=== PATIENT | male | born 1995 | race American Indian/Alaskan Native ===

== ENCOUNTER 2017-03-01 17:41 | Emergency (ER) | payer SELFPAY ==
[2017-03-01 18:11] VITALS: BP 125/80
== END 2017-03-01 20:15 | disposition left against medical advice (07) ==
LOC: ED 17:41
DX: R51 Headache (principal); R11.0 Nausea; Z53.21 Procedure and treatment not carried out due to patient leaving prior to being seen by health care provider

== ENCOUNTER 2019-07-05 18:55 | Emergency (ER) | payer SELFPAY ==
[2019-07-05 19:01] VITALS: BP 120/54
== END 2019-07-05 21:45 | disposition left against medical advice (07) ==
LOC: ED 18:55
DX: R05 Cough (principal); Z53.21 Procedure and treatment not carried out due to patient leaving prior to being seen by health care provider

== ENCOUNTER 2020-06-21 00:05 | Emergency (ER) | payer SELFPAY ==
[2020-06-21 00:27] VITALS: BP 114/71
== END 2020-06-21 01:00 | disposition left against medical advice (07) ==
LOC: ED 00:05
DX: M25.571 Pain in right ankle and joints of right foot (principal); Z53.21 Procedure and treatment not carried out due to patient leaving prior to being seen by health care provider

== ENCOUNTER 2021-01-03 11:45 | Emergency (ER) | payer SELFPAY ==
[2021-01-03] MEDS ORDERED: SODIUM CHLORIDE 0.9% 1000 ML 1,000 ML IV ONE ×2 (12:07→12:14)
[2021-01-03] MEDS ORDERED: HYDROmorphone 1 MG/1 ML INJ IV ONE ×2 (12:07→12:26)
[2021-01-03] MEDS ORDERED: ONDANSETRON 4 MG/2 ML INJ IV ONE (12:07)
--- NOTE | 2021-01-03 12:13 | Emergency Department Report ---
HPI - General Chief Complaint: Urogenital-Male Time Seen by Provider: 01/03/21 11:53 - HPI HPI: 25-year-old male with history of asthma and opiate use disorder presents complaining of left-sided testicular pain since 5 PM yesterday. The patient states that he takes approximately 60 mg of oxycodone p.o. daily recreationally. He states that yesterday he began to have pain in his left testicle at around 5 PM. The pain got worse and this morning he woke up with left lower abdominal pain as well. His left-sided testicular pain is worsened over the last hour he has developed nausea and vomiting. Because of the severity of the pain 911 was called and he was brought in by EMS. The patient states that he is not sexually active. Other than his left testicular pain and left-sided abdominal pain with nausea and vomiting he denies any other recent symptoms or complaints including fever/chills, headache, vision change, chest pain, cough, shortness of breath, diarrhea, constipation, melena, saddle anesthesia, focal weakness, sensory changes, dysuria, urethral discharge, or any other complaints. ED Past Medical Hx - Past Medical History Previous Medical History?: Yes Hx Asthma: Yes Additional medical history: opiate use - Surgical History Additional Surgical History: blockage in kidney at 4 mo - Social History Smoking Status: Never Smoker Substance Use Type: Marijuana - Medications Home Medications: Home Medications Medication Instructions Recorded Confirmed Last Taken Type Acetaminophen [Tylenol] 650 mg PO Q6HR PRN #30 tablet 06/17/15 Unknown Rx Ciprofloxacin HCl [Ciprofloxacin 500 mg PO Q12HR #14 tab 06/17/15 Unknown Rx TAB] Ondansetron [Zofran Odt] 4 mg PO Q8HR PRN #15 tab.rapdis 01/03/21 Unknown Rx Tamsulosin [Flomax] 0.4 mg PO QDAY #10 cap 01/03/21 Unknown Rx ED Review of Systems ROS: Stated complaint: TESTICLE EDEMA Other details as noted in HPI Constitutional: denies: chills, fever Eyes: denies: eye pain, vision change ENT: denies: throat pain, congestion Respiratory: denies: cough, shortness of breath Cardiovascular: denies: chest pain, palpitations Gastrointestinal: abdominal pain, nausea, vomiting Genitourinary: testicular pain. denies: dysuria, frequency, hematuria, discharge Musculoskeletal: denies: back pain, myalgia Skin: denies: rash, lesions Neurological: denies: headache, weakness, numbness, paresthesias Physical Exam - Physical Exam Vital Signs: Last Vital Signs Temp Pulse 71 01/03/21 17:18 Resp 21 01/03/21 17:18 BP 109/60 01/03/21 17:18 Pulse Ox 97 01/03/21 17:18 Physical Exam: GENERAL: Well developed and well nourished. In moderate distress secondary to pain HEENT: Normocephalic. No obvious signs of trauma. Dry mucous membranes. EYES: Extraocular movements are intact. NECK: Supple. Trachea is midline. LUNGS: In moderate distress secondary to pain. Equal chest rise bilaterally. Clear to auscultation bilaterally. HEART/CARDIOVASCULAR: Regular rate and rhythm. No murmurs or rubs. VASCULAR: 2+ peripheral pulses. ABDOMEN: Abdomen is soft and nondistended. There is significant left lower quadrant abdominal tenderness with voluntary guarding. There is no rebound tenderness. Otherwise there is no significant tenderness. GENITOURINARY: Normal-appearing external male genitalia. No significant testicular swelling noted. Significant tenderness noted of the entire left testicle. The cremasteric reflex is intact bilaterally. There are no skin changes or significant warmth/swelling of the perineum. SKIN: Skin is warm and dry NEURO: Patient is awake, alert, and oriented. catering service manager II-XII grossly intact. No focal deficits. MUSCULOSKELETAL: No obvious deformities. No significant tenderness. BACK/SPINE: Back exam was deferred due to the patient's clinical condition. ED Medical Decision Making - Lab Data Result diagrams: 01/03/21 12:10 01/03/21 12:10 Lab Results 01/03/21 01/03/21 01/03/21 Range/Units 12:10 12:10 12:10 WBC 6.6 (4.5-11.0) K/mm3 RBC 4.25 (3.65-5.03) M/mm3 Hgb 13.2 (11.8-15.2) gm/dl Hct 38.9 (35.5-45.6) % MCV 92 (84-94) fl MCH 31 (28-32) pg MCHC 34 (32-34) % RDW 13.1 L (13.2-15.2) % Plt Count 249 (140-440) K/mm3 Lymph % (Auto) 26.5 (13.4-35.0) % Lake % (Auto) 7.0 (0.0-7.3) % Eos % (Auto) 0.9 (0.0-4.3) % Baso % (Auto) 0.4 (0.0-1.8) % Lymph # (Auto) 1.7 (1.2-5.4) K/mm3 Lake # (Auto) 0.5 (0.0-0.8) K/mm3 Eos # (Auto) 0.1 (0.0-0.4) K/mm3 Baso # (Auto) 0.0 (0.0-0.1) K/mm3 Seg Neutrophils % 65.2 (40.0-70.0) % Seg Neutrophils # 4.3 (1.8-7.7) K/mm3 PT 12.7 (12.2-14.9) Sec. INR 0.90 (0.87-1.13) APTT 28.1 (24.2-36.6) Sec. Sodium 141 (137-145) mmol/L Potassium 4.0 (3.6-5.0) mmol/L Chloride 103.8 (98-107) mmol/L Carbon Dioxide 24 (22-30) mmol/L Anion Gap 17 mmol/L BUN 7 L (9-20) mg/dL Creatinine 0.8 (0.8-1.3) mg/dL Estimated GFR > 60 ml/min BUN/Creatinine Ratio 9 % Glucose 127 H (75-100) mg/dL Calcium 9.5 (8.4-10.2) mg/dL Magnesium 2.00 (1.7-2.3) mg/dL Total Bilirubin 0.40 (0.1-1.2) mg/dL Direct Bilirubin < 0.2 (0-0.2) mg/dL Indirect Bilirubin 0.2 mg/dL AST 23 (5-40) units/L ALT 20 (7-56) units/L Alkaline Phosphatase 77 (35-129) units/L Albumin 4.7 (3.9-5) g/dL Lipase 13 (13-60) units/L Urine Color (Yellow) Urine Turbidity (Clear) Urine pH (5.0-7.0) Ur Specific Drexel (1.003-1.030) Urine Protein (Negative) mg/dL Urine Glucose (UA) (Negative) mg/dL Urine Ketones (Negative) mg/dL Urine Blood (Negative) Urine Nitrite (Negative) Urine Bilirubin (Negative) Urine Urobilinogen (<2.0) mg/dL Ur Leukocyte Esterase (Negative) Urine WBC (Auto) (0.0-6.0) /HPF Urine RBC (Auto) (0.0-6.0) /HPF Urine Mucus /HPF 01/03/21 Range/Units 13:42 WBC (4.5-11.0) K/mm3 RBC (3.65-5.03) M/mm3 Hgb (11.8-15.2) gm/dl Hct (35.5-45.6) % MCV (84-94) fl MCH (28-32) pg MCHC (32-34) % RDW (13.2-15.2) % Plt Count (140-440) K/mm3 Lymph % (Auto) (13.4-35.0) % Lake % (Auto) (0.0-7.3) % Eos % (Auto) (0.0-4.3) % Baso % (Auto) (0.0-1.8) % Lymph # (Auto) (1.2-5.4) K/mm3 Lake # (Auto) (0.0-0.8) K/mm3 Eos # (Auto) (0.0-0.4) K/mm3 Baso # (Auto) (0.0-0.1) K/mm3 Seg Neutrophils % (40.0-70.0) % Seg Neutrophils # (1.8-7.7) K/mm3 PT (12.2-14.9) Sec. INR (0.87-1.13) APTT (24.2-36.6) Sec. Sodium (137-145) mmol/L Potassium (3.6-5.0) mmol/L Chloride (98-107) mmol/L Carbon Dioxide (22-30) mmol/L Anion Gap mmol/L BUN (9-20) mg/dL Creatinine (0.8-1.3) mg/dL Estimated GFR ml/min BUN/Creatinine Ratio % Glucose (75-100) mg/dL Calcium (8.4-10.2) mg/dL Magnesium (1.7-2.3) mg/dL Total Bilirubin (0.1-1.2) mg/dL Direct Bilirubin (0-0.2) mg/dL Indirect Bilirubin mg/dL AST (5-40) units/L ALT (7-56) units/L Alkaline Phosphatase (35-129) units/L Albumin (3.9-5) g/dL Lipase (13-60) units/L Urine Color Yellow (Yellow) Urine Turbidity Clear (Clear) Urine pH 7.0 (5.0-7.0) Ur Specific Drexel 1.012 (1.003-1.030) Urine Protein <15 mg/dl (Negative) mg/dL Urine Glucose (UA) Neg (Negative) mg/dL Urine Ketones Neg (Negative) mg/dL Urine Blood Mod (Negative) Urine Nitrite Neg (Negative) Urine Bilirubin Neg (Negative) Urine Urobilinogen < 2.0 (<2.0) mg/dL Ur Leukocyte Esterase Neg (Negative) Urine WBC (Auto) 2.0 (0.0-6.0) /HPF Urine RBC (Auto) 175.0 (0.0-6.0) /HPF Urine Mucus 1+ /HPF - Radiology Data CT ABDOMEN AND PELVIS WITH CONTRAST HISTORY: Left lower quadrant pain COMPARISON: None TECHNIQUE: Routine abdominal and pelvic CT exam performed following intravenous contrast administration.. All CT scans at this location are performed using CT dose reduction for ALARA by means of automated exposure control. FINDINGS: CT ABDOMEN: Lung Bases: No significant abnormality. Liver: No significant abnormality. Biliary: No significant abnormality. Spleen: No significant abnormality. Unenlarged. Pancreas: No significant abnormality. Adrenals: No significant abnormality. Kidneys: There is mild left hydronephrosis due to a 3 mm stone in the proximal left ureter. There is also a 1.5 cm simple cyst in the mid left kidney. Lymphatics: No lymphadenopathy. Vasculature: No significant abnormality. Bowel/Peritoneum: No significant abnormality. No free air. No free fluid. Normal appendix. CT PELVIC: : No significant abnormality. Lymphatics: No lymphadenopathy. Osseous Structures: No aggressive appearing osseous lesions. Additional Findings: None IMPRESSION: 1. Mild left hydronephrosis due to 3 mm stone in the proximal left ureter. Signer Name: Eloy Barcenas MD Signed: 01/03/2021 12:43 PM Workstation Name: [id number] ULTRASOUND SCROTUM INDICATION / CLINICAL INFORMATION: Assess for evidence of testicular torsion. COMPARISON: None available. FINDINGS -- RIGHT: TESTIS: Size = 4.5 x 2.2 x 3.1 cm. - Appearance: No significant abnormality. - Cyst / Mass: None. - Color Doppler Flow: No significant abnormality. EPIDIDYMIS: No significant abnormality. HYDROCELE: None. VARICOCELE: None demonstrated. FINDINGS -- LEFT: TESTIS: Size = 4.9 x 1.9 x 3.6 cm. - Appearance: No significant abnormality. - Cyst / Mass: None. - Color Doppler Flow: No sig nificant abnormality. EPIDIDYMIS: No significant abnormality. HYDROCELE: Left hydrocele VARICOCELE: None demonstrated. ADDITIONAL FINDINGS: None. IMPRESSION: 1. No evidence of torsion. 2. Left hydrocele. Signer Name: Aldo Brody MD Signed: 01/03/2021 12:58 PM Workstation Name: [id number] - Medical Decision Making 25-year-old male presenting with left-sided testicular pain and left lower quadrant abdominal pain which is worsened acutely over the past hour with associated nausea and vomiting. His left testicular pain initially started yesterday at about 5 PM, which is approximately 18 to 20 hours ago. On exam he has very dry mucous membranes. His abdomen is soft and nondistended but there is significant left lower quadrant tenderness. Genitourinary exam reveals normal-appearing external male genitalia, no significant testicular swelling but exquisite left testicular tenderness. Cremasteric reflexes are intact bilaterally. There are no overlying or surrounding skin changes. We will perform further work-up with labs and stat testicular ultrasound to assess for evidence of torsion. We will also order CT of the abdomen pelvis given his abdominal tenderness. We will give 2 L of IV fluids, 1 mg of Dilaudid, 4 mg of Zofran and continue to monitor closely. On repeat assessment at 1:47 PM, the patient reports that his symptoms are greatly improved. He is resting comfortably in the bed. We will follow up the results. Labs have resulted and reveal no significant leukocytosis or anemia. Creatinine is within normal range and there are no significant electrolyte abnormalities. CT of the abdomen pelvis reveals 3 mm left kidney stone in the proximal ureter. Testicular ultrasound shows left hydrocele but no evidence of torsion. These findings were discussed with the patient including the need for aggressive fluid rehydration. On repeat exam at 4:30 PM, the patient remains symptomatically improved. Urinalysis shows no evidence of infection. The patient will be discharged home with 7 days of Flomax and a urine strainer with instructions to follow-up with urology. All this was discussed with the patient expressed understanding agree ment with the plan of care. Patient has been prescribed Zofran in addition to Flomax. He was encouraged to take ibuprofen as needed for pain. Critical care attestation.: If time is entered above; I have spent that time in minutes in the direct care of this critically ill patient, excluding procedure time. ED Disposition Clinical Impression: Left ureteral stone, Kidney stone, Dehydration Disposition: DC-01 TO HOME OR SELFCARE Is pt being admited?: No Condition: Stable Instructions: Kidney Stones, Rehydration, Adult, Dietary Guidelines to Help Prevent Kidney Stones, Dehydration, Adult Additional Instructions: Please continue to stay hydrated. Strain your urine until you pass a kidney stone. Follow-up with urology in 7 to 10 days. Return to the emergency department should you develop fever, severe nausea/vomiting and inability to tolerate food or liquid by mouth, or any other new concerns. Prescriptions: Tamsulosin [Flomax] 0.4 mg PO QDAY #10 cap Ondansetron [Zofran Odt] 4 mg PO Q8HR PRN #15 tab.rapdis PRN Reason: Nausea And Vomiting Referrals: PRIMARY CARE, [Primary Care Provider] - 3-5 Days [facility] [Provider Group] - 7-10 days
[2021-01-03 12:38] LABS: Basophils % (Auto) 0.4 % (0.0-1.8); Eosinophils # (Auto) 0.1 K/mm3 (0.0-0.4); Eosinophils % (Auto) 0.9 % (0.0-4.3); Hematocrit 38.9 % (35.5-45.6); Hemoglobin 13.2 gm/dl (11.8-15.2); Lymphocytes # (Auto) 1.7 K/mm3 (1.2-5.4); Lymphocytes % (Auto) 26.5 % (13.4-35.0); Mean Corpuscular HGB Conc 34 % (32-34); Mean Corpuscular Volume 92 fl (84-94); Monocytes # (Auto) 0.5 K/mm3 (0.0-0.8); Platelet Count 249 K/mm3 (140-440); Red Blood Count 4.25 M/mm3 (3.65-5.03); Red Cell Distribution Width 13.1 % (13.2-15.2)
[2021-01-03 12:50] LABS: INR 0.9 (0.87-1.13)
[2021-01-03 12:51] LABS: Partial Thromboplastin Time 28.1 Sec. (24.2-36.6)
[2021-01-03 12:57] LABS: Alanine Aminotransferase 20 units/L (7-56); Albumin 4.7 g/dL (3.9-5); BUN/Creatinine Ratio 9; Blood Urea Nitrogen 7 mg/dL (9-20); Calcium 9.5 mg/dL (8.4-10.2); Hemolysis Index 8
[2021-01-03 12:58] LABS: Bilirubin,Direct < 0.2 mg/dL (0-0.2)
--- NOTE | 2021-01-03 13:48 | Cat Scan Report ---
CT ABDOMEN AND PELVIS WITH CONTRAST HISTORY: Left lower quadrant pain COMPARISON: None TECHNIQUE: Routine abdominal and pelvic CT exam performed following intravenous contrast administrat ion.. All CT scans at this location are performed using CT dose reduction for ALARA by means of autom ated exposure control. FINDINGS: CT ABDOMEN: Lung Bases: No significant abnormality. Liver: No significant abnormality. Biliary: No significant abnormality. Spleen: No significant abnormality. Unenlarged. Pancreas: No significant abnormality. Adrenals: No significant abnormality. Kidneys: There is mild left hydronephrosis due to a 3 mm stone in the proximal left ureter. There is also a 1.5 cm simple cyst in the mid left kidney. Lymphatics: No lymphadenopathy. Vasculature: No significant abnormality. Bowel/Peritoneum: No significant abnormality. No free air. No free fluid. Normal appendix. CT PELVIC: : No significant abnormality. Lymphatics: No lymphadenopathy. Osseous Structures: No aggressive appearing osseous lesions. Additional Findings: None IMPRESSION: 1. Mild left hydronephrosis due to 3 mm stone in the proximal left ureter. Signer Name: Eloy Barcenas MD Signed: 01/03/2021 1:43 PM Workstation Name: [id number]
[2021-01-03] MEDS ORDERED: TAMSULOSIN 0.4 MG CAP PO ONE (13:55)
[2021-01-03] MEDS ORDERED: KETOROLAC 30 MG/1 ML INJ IV ONE (13:56)
--- NOTE | 2021-01-03 14:03 | Ultrasound Report ---
ULTRASOUND SCROTUM INDICATION / CLINICAL INFORMATION: Assess for evidence of testicular torsion. COMPARISON: None available. FINDINGS -- RIGHT: TESTIS: Size = 4.5 x 2.2 x 3.1 cm. - Appearance: No significant abnormality. - Cyst / Mass: None. - Color Doppler Flow: No significant abnormality. EPIDIDYMIS: No significant abnormality. HYDROCELE: None. VARICOCELE: None demonstrated. FINDINGS -- LEFT: TESTIS: Size = 4.9 x 1.9 x 3.6 cm. - Appearance: No significant abnormality. - Cyst / Mass: None. - Color Doppler Flow: No significant abnormality. EPIDIDYMIS: No significant abnormality. HYDROCELE: Left hydrocele VARICOCELE: None demonstrated. ADDITIONAL FINDINGS: None. IMPRESSION: 1. No evidence of torsion. 2. Left hydrocele. Signer Name: Aldo Brody MD Signed: 01/03/2021 1:58 PM Workstation Name: [id number]
[2021-01-03 15:59] LABS: Bilirubin,Urine NEG (Negative); Blood,Urine MOD (Negative); Color,Urine Yellow (Yellow); Mucus,Urine 1+ /HPF; Protein,Urine <15 mg/dL mg/dL (Negative); Urobilinogen,Urine < 2.0 mg/dL (<2.0)
[2021-01-03 17:18] VITALS: BP 109/60
== END 2021-01-03 18:16 | disposition home or self-care (01) ==
LOC: ED 11:45
DX: N20.2 Calculus of kidney with calculus of ureter (principal); E86.0 Dehydration; J45.909 Unspecified asthma, uncomplicated; F12.90 Cannabis use, unspecified, uncomplicated
CPT/HCPCS: 36415; 74177; 80048; 80076; 81001; 83690; 83735; 85025; 85610; 85730; 93975; 96361; 96374; 96375; 96376; 99284; J1170; J1885; J2405; J7030; Q9967